=== PATIENT | female | born 1960 | race Two or more races ===

== ENCOUNTER 2025-04-19 15:37 | Emergency (ER) | payer OTHER ==
[~2025-04-19] VITALS: Ht 157.5 cm; Wt 66.0 kg
--- NOTE | 2025-04-19 16:57 | ED.PDOC ---
History of Present Illness HPI Comments 64-year-old female presents to the ER son who translates and the chief complaint of back pain. Patient reports on having lower back pain for two weeks for which is associated with nausea, bilateral flank pain, burning sensation during urination, and chills for the past week. Patient notes that she does have stage 4 kidney disease. Denies fever, /V/D, SOB, CP. No other associated symptoms, modifiers, recent injuries or sick contacts present at this time. Chief Complaint: Abdominal Pain Time Seen by MD: 16:50 Reviewed Notes: Nurses Notes, Medications, Allergies Allergies: Coded Allergies: NO KNOWN ALLERGIES (Unverified , 04/19/25) Home Meds Active Scripts Gabapentin (Once-Daily) (Gabapentin) 300 Mg Tab, 300 MG PO Q6HP PRN, #60 TAB Prov:FERNANDO LEYVA MD 04/19/25 Information Source: Patient Mode of Arrival: Ambulatory Severity: Moderate Timing: Weeks Duration: Since onset Prehospital treatment: None Past Medical History Past Medical History (Other): Stage 4 kidney disease Surgical History: Denies all surgeries IN FLIGHT TECHNICIAN History: No Pertinent IN FLIGHT TECHNICIAN History Family History Family History: Reviewed,noncontributory to illness, Unknown Social History Smoker: Non-Smoker Alcohol: Denies ETOH Use Drugs: Denies Drug Use Lives In: Home Constitutional: reports: chills; denies: diaphoresis, fatigue, fever, malaise, sweats, weakness, others EENTM: denies: blurred vision, double vision, ear bleeding, ear discharge, ear drainage, ear pain, ear ringing, eye pain, eye redness, hearing loss, mouth pain, mouth swelling, nasal discharge, nose bleeding, nose congestion, nose pain, photophobia, tearing, throat pain, throat swelling, voice changes, others Respiratory: denies: cough, hemoptysis, orthopnea, SOB at rest, shortness of breath, SOB with excertion, stridor, wheezing, others Cardiovascular: denies: chest pain, dizzy spells, diaphoresis, Dyspnea on exertion, edema, irregular heart beat, left arm pain, lightheadedness, palpitations, PND, syncope, others Gastrointestinal: reports: nausea; denies: abdomen distended, abdominal pain, blood streaked bowels, constipated, diarrhea, dysphagia, difficulty swallowing, hematemesis, melena, poor appetite, poor fluid intake, rectal bleeding, rectal pain, vomiting, others Genitourinary: reports: burning, flank pain; denies: abnormal vagina bleeding, dyspareunia, dysuria, frequency, hematuria, incontinence, pain, , vagina discharge, urgency, others Neurological: denies: dizziness, fainting, headache, left sided numbness, left sided weakness, numbness, paresthesia, pre-existing deficit, right sided numbness, right sided weakness, seizure, speech problems, tingling, tremors, weakness, others Musculoskeletal: reports: back pain; denies: gout, joint pain, joint swelling, muscle pain, muscle stiffness, neck pain, others Integumetry: denies: bruises, change in color, change in hair/nails, dryness, l aceration, lesions, lumps, rash, wounds, others Allergic/Immunocompromised: denies: Difficulty Healing, Frequent Infections, Hives, Itching, others Hematologic/Lymphatic: denies: anemia, blood clots, easy bleeding, easy bruising, swollen glands, others Endocrine: denies: excessive hunger, excessive sweating, excessive thirst, excessive urination, flushing, intolerance to cold, intolerance to heat, unexplained weight gain, unexplained weight loss, others Psychiatric: denies: anxiety, bipolar disorder, depression, hopeless, panic disorder, schizophrenia, sleepless, suicidal, others All Other Systems: Reviewed and Negative Physical Exam General Appearance: No Apparent Distress, Normal HEENT: Normal ENT Inspection, Pharynx Normal, TMs Normal Neck: Full Range of Motion, Non-Tender, Normal, Normal Inspection Respiratory: Chest Non-Tender, Lungs Clear, No Accessory Muscle Use, No Respiratory Distress, Normal Breath Sounds Cardiovascular: No Edema, No JVD, No Murmur, No Gallop, Normal Peripheral Pulses, Regular Rate/Rhythm Breast Exam: Deferred Gastrointestinal: No Organomegaly, Non Tender, No Pulsatile Mass, Normal Bowel Sounds, Soft Genitalia: Deferred Pelvic: Deferred Rectal: Deferred Extremities: No calf tenderness, Normal capillary refill, Normal inspection, Normal range of motion, Non-tender, No pedal edema Musculoskeletal : Apperance: Normal Neurologic: Alert, internal medicine veterinary technician II-XII nml as Tested, No Motor Deficits, Normal Affect, Normal Mood, No Sensory Deficits Cerebellar Function: Normal Reflexes: Normal Skin: Dry, Normal Color, Warm Lymphatic: No Adenopathy Was a procedure done? Was a procedure done?: No Differential Dx Considerations may include: Differential diagnosis includes but not limited to: Kidney stone, UTI, pyelonephritis, sepsis, aortic dissection and others X-Ray, Labs, Meds, VS Vital Signs Date Time Temp Pulse Resp B/P (MAP) Pulse Ox O2 Delivery O2 Flow Rate FiO2 04/19/25 15:50 126 04/19/25 15:40 99.0 126 20 144/99 96 99.0 Lab Test 04/19/25 17:37 04/19/25 16:50 Range/Units White Blood Count 8.8 4.4-10.8 10^3/uL Red Blood Count 4.37 4.0-5.20 10^6/uL Hemoglobin 14.3 12.2-16.2 g/dL Hematocrit 40.8 36.0-46.0 % Mean Corpuscular Volume 93.3 80.0-100.0 fL Mean Corpuscular Hemoglobin 32.7 H 28.0-32.0 pg Mean Corpuscular Hemoglobin Concent 35.0 32.0-36.0 g/dL Red Cell Distribution Width 12.4 11.8-14.3 % Platelet Count 300 140-450 10^3/uL Mean Platelet Volume 7.8 6.9-10.8 fL Neutrophils (%) (Auto) 62.3 37.0-80.0 % Lymphocytes (%) (Auto) 25.0 10.0-50.0 % Monocytes (%) (Auto) 8.6 0.0-12.0 % Eosinophils (%) (Auto) 3.0 0.0-7.0 % Basophils (%) (Auto) 1.1 0.0-2.0 % Neutrophils # (Auto) 5.5 1.6-8.6 10 ^3/uL Lymphocytes # (Auto) 2.2 0.4-5.4 10 ^3/uL Monocytes # (Auto) 0.8 0-1.3 10 ^3/uL Eosinophils # (Auto) 0.3 0-0.8 10 ^3/uL Basophils # (Auto) 0.1 0-0.2 10 ^3/uL Nucleated Red Blood Cells 0.0 % Sodium Level 138 136-145 mmol/L Potassium Level 3.8 3.5-5.1 mmol/L Chloride Level 106 98-107 mmol/L Carbon Dioxide Level 23 20-31 mmol/L Anion Gap 9 5-15 Blood Urea Nitrogen 26 H 9-23 mg/dL Creatinine 1.88 H 0.550-1.02 mg/dL Glomerular Filtration Rate Calc 29 >90 mL/min BUN/Creatinine Ratio 13.8 10.0-20.0 Serum Glucose 105 74-106 mg/dL Calcium Level 9.3 8.7-10.4 mg/dL Urine Color Light-yellow Yellow Urine Clarity Turbid H Clear Urine pH 5.5 5.0-9.0 Urine Specific [place] 1.011 1.001-1.035 Urine Protein 1+ H Negative Urine Ketones Negative Negative Urine Blood Trace H Negative /uL Urine Nitrite Negative Negative Urine Bilirubin Negative Negative Urine Urobilinogen Normal Negative mg/dL Urine Leukocyte Esterase Negative Negative /uL Urine RBC 2 0 - 4 /hpf Urine Microscopic WBC 4 0-5 /HPF Urine Squamous Epithelial Cells Mod <5 /hpf Urine Bacteria Few H None Seen /hpf Urine Yeast (Budding) Occasional None Seen /hpf Urine Glucose 4+ H Normal mg/dL Time of 1ST Reevaluation: 17:20 Reevaluation 1ST: Unchanged Patient Education/Counseling: Diagnosis, Treatment, Prognosis Family Education/Counseling: Diagnosis, Treatment, Prognosis SEPSIS Sepsis Screen Date sepsis recognized/suspect: Apr 19, 2025 Time Sepsis recognized/suspect: 1539 Recent Procedure: No On Antibiotic Therapy: No Respiratory Rate >20: No Heart Rate >90: Yes Temp<36 C (96.8 F) or >38.3 C: No SBP <90 or MAP <65 mmHG: No New Acute Mental Status Change: No Is the patient on CPAP, BIPAP,: No Physician Orders Electrocardigram (04/19/25 15:56) Ct Ab Pel Wo Con-No Oral Or Iv (04/19/25 19:19) Vital Signs Date Time Temp Pulse Resp B/P (MAP) Pulse Ox O2 Delivery O2 Flow Rate FiO2 04/19/25 15:50 126 04/19/25 15:40 99.0 126 20 144/99 96 99.0 Laboratory Tests Test 04/19/25 17:37 White Blood Count 8.8 10^3/uL (4.4-10.8) Departure 1 Departure Time of Disposition: 20:36 Impression: Primary Impression: Flank pain Disposition: 01 HOME / SELF CARE / HOMELESS Condition: Stable e-Prescriptions Gabapentin (Once-Daily) (Gabapentin) 300 Mg Tab 300 MG PO Q6HP PRN, #60 TAB Prov: FERNANDO LEYVA MD 04/19/25 Discharged With: Self Critical Care Note Critical Care Time?: No Stability Stability form required: No I personally scribed for RADHIKA CASILLAS MD ([email or web address]) on 04/19/25 at 16:57. Electronically submitted by Omari Wu ([email or web address]). RADHIKA CASILLAS MD Apr 19, 2025 16:57 FERNANDO LEYVA MD Apr 19, 2025 20:37
[2025-04-19 17:57] LABS: Hematocrit 40.8 % (36.0-46.0); Hemoglobin 14.3 g/dL (12.2-16.2); Mean Corpuscular Hemoglobin 32.7 pg (28.0-32.0); Mean Corpuscular Volume 93.3 fL (80.0-100.0); Nucleated Red Blood Cells % 0.0 %
[2025-04-19 18:03] LABS: Chloride 106 mmol/L (98-107); Potassium 3.8 mmol/L (3.5-5.1); Sodium 138 mmol/L (136-145)
[2025-04-19 18:04] LABS: Anion Gap 9 (5-15); Carbon Dioxide 23 mmol/L (20-31)
[2025-04-19 18:05] LABS: Calcium 9.3 mg/dL (8.7-10.4)
[2025-04-19 18:09] LABS: BUN/Creatinine Ratio 13.8 (10.0-20.0); Glucose 105 mg/dL (74-106)
[2025-04-19 18:27] LABS: Blood Urea Nitrogen 26 mg/dL (9-23)
[2025-04-19 19:10] LABS: Urine Budding Yeast OCCASIONAL /hpf (None Seen); Urine Protein, UAD 1+ (Negative)
--- NOTE | 2025-04-19 19:54 | DVH ---
Exam: CT CT AB PEL WO CON-NO ORAL OR IV History: flank pain Comparison Study: None TECHNIQUE: Multidetector CT of the abdomen and pelvis was performed from lung bases to pubic symphysi s. Imaging was performed without IV contrast. Axial, coronal, and sagittal multiplanar reformats were obtained from the axial data set by the technologist. RADIATION DOSE: CTDI vol 11.93 mGy. DLP 613.06 mGy.cm Findings: Limited evaluation of the solid organs in the absence of IV contrast. Lungs: The lung bases are clear. Liver: Unremarkable. Spleen: Unremarkable. Pancreas: Unremarkable. Gallbladder: Unremarkable. Adrenals: Unremarkable Kidneys: Left renal cysts. No hydronephrosis. Pelvic Viscera: Prior hysterectomy. Vasculature: Atherosclerotic aortoiliac calcification. Retroperitoneum: Unremarkable. Bowel: No bowel obstruction. Portions of the bowel are decompressed, limiting assessment. Musculoskeletal: Unremarkable. Soft tissues: Tiny [id number]-[id number]-right inguinal hernias. Impression: 1. No acute abdominopelvic abnormality. 2. Incidental findings as detailed.
[2025-04-19] MEDS ORDERED: GABA300T4 PO (20:20)
[2025-04-19 22:00] VITALS: BP 118/65; PULSE 92; RESP 16; TEMP 97.3; O2SAT 96
--- NOTE | 2025-04-20 15:07 | ECG ---
[facility] Test Date: 2025-04-19 Test Time: 15:50:41 Pat Name: CRESENCIO RESENDEZ Department: Room: Gender: F Accounts Receivable Coordinator: GP : 1960 Requested By: EMERGENCY EMERGENCY Order Number: [id number] Reading MD: Shukri Georges Measurements Intervals [place] Rate: 126 P: 83 TN: 146 QRS: 47 QRSD: 74 T: 0 QT: 304 QTc: 441 Interpretive Statements Sinus tachycardia LAE, consider biatrial enlargement Electronically Signed On 04-20-2025 15:40:13 PDT by Shukri Georges Please click the below link to view image of tracing.
== END 2025-04-19 22:03 | disposition home or self-care (01) ==
LOC: ER 15:37
DX: R10.9 Unspecified abdominal pain (principal); N18.4 Chronic kidney disease, stage 4 (severe); Z79.899 Other long term (current) drug therapy
CPT/HCPCS: 36415; 74176; 80048; 81001; 85025; 93005